=== PATIENT | female | born 1950 | race Caucasian/White ===

== ENCOUNTER 2017-09-24 05:42 | Day surgery (SDC) | payer MEDICARE, BC ==
[~2017-09-24] VITALS: Ht 157.5 cm; Wt 89.8 kg
[~2017-09-24 05:42] MED LIST: GABA300C10 PO; PRAM2.25 PO
[2017-09-24] MEDS ORDERED: LACTATED RINGERS 1,000 ML IV SCH (06:19)
[2017-09-24] MEDS ORDERED: FERR-36 PO (06:22)
[2017-09-24] MEDS ORDERED: MULT-658 PO (06:22)
[2017-09-24] MEDS ORDERED: CYAN50TA PO (06:22)
[2017-09-24 06:23] VITALS: BP 139/68
[2017-09-24] MEDS ORDERED: GLYCOPYRROLATE 0.2MG/1ML, 5ML ONE (06:51)
[2017-09-24] MEDS ORDERED: FENTANYL PF 250 MCG/5ML ONE (06:51)
[2017-09-24] MEDS ORDERED: PROPOFOL 10 MG/ML, 20ML ONE (06:51)
[2017-09-24] MEDS ORDERED: MIDAZOLAM 1 MG/ML, 2ML ONE (06:51)
[2017-09-24] MEDS ORDERED: ROCURONIUM 10 MG/ML ONE ×2 (06:51→07:31)
[2017-09-24] MEDS ORDERED: NEOSTIGMINE 1 MG/ML, 10ML ONE (06:51)
[2017-09-24] MEDS ORDERED: CEFAZOLIN 1,000 MG ONE (06:51)
[2017-09-24] MEDS ORDERED: SUCCINYLCHOLINE 20 MG/ML, 10ML ONE (06:51)
[2017-09-24] MEDS ORDERED: DEXAMETHASONE 4 MG/ML, 1ML ONE (06:51)
[2017-09-24] MEDS ORDERED: ONDANSETRON 2MG/ML, 2ML ONE ×2 (06:51→12:52)
[2017-09-24] MEDS ORDERED: EPINEPHRINE 1 MG/ML, 1ML ONE (06:55)
[2017-09-24] MEDS ORDERED: BUPIVACAINE/PF 0.5% ONE (06:55)
[2017-09-24] MEDS ORDERED: LIDOCAINE 4%, 4 ML SYR/CANN TP ONE ×2 (07:00→07:31)
[2017-09-24] MEDS ORDERED: ONDANSETRON 2MG/ML, 2ML IVPush PRN ×2 (07:30→13:00)
[2017-09-24] MEDS ORDERED: ACETAMINOPHEN 325 MG TABLET PO PRN (07:30)
[2017-09-24] MEDS ORDERED: OXYcodone 5 MG/5 ML ORAL.SOL UDC PO PRN (07:30)
[2017-09-24] MEDS ORDERED: HYDROcodone/APAP 7.5-325MG/15ML UDC PO PRN (07:30)
[2017-09-24] MEDS ORDERED: PROMETHAZINE 25 MG/ML, 1ML IV PRN (07:30)
[2017-09-24] MEDS ORDERED: HYDROmorphone 1 MG/ML, 1ML IV PRN (07:30)
[2017-09-24] MEDS ORDERED: ALBUTEROL SULFATE 200 PUFFS/8.5 GR INH ONE (07:31)
[2017-09-24] MEDS ORDERED: PHENYLEPHRINE 10 MG/ML ONE (07:31)
[2017-09-24] MEDS ORDERED: OXYcodone 5 MG/5 ML ORAL.SOL UDC ONE (08:51)
[2017-09-24] MEDS ORDERED: FENTANYL PF 100 MCG/2ML ONE (08:51)
[2017-09-24] MEDS ORDERED: ACETAMINOPHEN 650 MG/20.3 ML UDC ONE (08:51)
[2017-09-24] MEDS: FENTANYL PF 100 MCG/2ML IV PRN ×2 (08:53→09:00)
== END 2017-09-24 15:05 ==
LOC: OUT 05:42
PROVIDERS: ATTEND Surgery
DX: K42.9 Umbilical hernia without obstruction or gangrene (principal); K43.9 Ventral hernia without obstruction or gangrene; D64.9 Anemia, unspecified
CPT/HCPCS: 49652; C1781; J0171; J0330; J0690; J1100; J2250; J2370; J2405; J2704; J2710; J3010; J3490; J7120